=== PATIENT | female | born 1975 | race Caucasian/White ===

== ENCOUNTER 2017-08-26 10:51 | Emergency (ER) | payer BC ==
[~2017-08-26] VITALS: Ht 175.3 cm; Wt 125.0 kg
[~2017-08-26 10:51] MED LIST: FLECAINIDE; JANUMET 1000 MG1 TA1 PO; LANTUS100 U/ML SC; TOPROL XL 25MG25 MG; VICTOZA6 MG/ML SC
[2017-08-26] MEDS ORDERED: METOPROLOL SUCC50 M1 PO (11:01)
[2017-08-26] MEDS ORDERED: DULOXETINE60 MG PO (11:01)
[2017-08-26] MEDS ORDERED: METOCLOPRAMIDE H5 M1 PO (11:01)
[2017-08-26] MEDS ORDERED: FLECAINIDE ACE100 MG PO (11:01)
[2017-08-26] MEDS ORDERED: FUROSEMIDE20 MG PO (11:02)
[2017-08-26] MEDS ORDERED: INVOKANA300 MG PO (11:02)
[2017-08-26] MEDS ORDERED: TRESIBA FL200 UNIT/1 SQ (11:02)
[2017-08-26 11:35] LABS: EOS # 0.2 (0.04-0.40); HEMATOCRIT 42.7 % (37.0-47.0); HEMOGLOBIN 14.1 g/dL (12.5-16.0); LYMPH# 2.1 (1.50-4.00); MEAN CELL VOLUME 91 fl (78-100); MEAN CORPUSCULAR HEMOGLOBIN 30 pg (27-31); MEAN CORPUSCULAR HGB CONC 33 g/dL (33-37); MEAN PLATELET VOLUME 10.4 fl (7.4-10.4); MONO # 0.4 (0.20-0.80); NEU # 4.7 (1.40-6.50); PLATELET COUNT 149 K/mm3 (130-400); RED CELL DISTRIBUTION WIDTH 14.3 % (11.5-14.5); WHITE BLOOD COUNT 7.6 K/mm3 (4.8-10.8)
[2017-08-26 11:48] LABS: ALBUMIN 3.7 g/dL (3.5-5.0); CALCIUM 8.6 mg/dL (8.4-10.2); POTASSIUM 4.7 mmol/L (3.6-5.0); TOTAL BILIRUBIN 0.7 mg/dL (0.2-1.3); TOTAL PROTEIN 7.5 g/dL (6.3-8.2)
[2017-08-26 12:24] LABS: URINE APPEARANCE CLEAR; URINE BILIRUBIN NEGATIVE (NEGATIVE); URINE BLOOD 50 ery/uL (NEGATIVE); URINE COLOR YELLOW; URINE KETONE NEGATIVE (NEGATIVE); URINE LEUKOCYTE ESTERASE NEGATIVE (NEGATIVE); URINE NITRATE NEGATIVE (NEGATIVE); URINE PROTEIN(semi-quant) NEGATIVE (NEGATIVE); URINE UROBILINOGEN NORMAL (NORMAL); URINE WBC 0-1 /hpf (0-3)
[2017-08-26 14:23] VITALS: BP 131/66
== END 2017-08-26 14:19 | disposition home or self-care (01) ==
LOC: ED 10:51
PROVIDERS: Family Medicine
DX: R10.31 Right lower quadrant pain (principal); R10.11 Right upper quadrant pain; E10.9 Type 1 diabetes mellitus without complications; I48.91 Unspecified atrial fibrillation; K76.0 Fatty (change of) liver, not elsewhere classified; Z90.49 Acquired absence of other specified parts of digestive tract; Z79.4 Long term (current) use of insulin
CPT/HCPCS: J1885

== ENCOUNTER → 2024-02-25 | Outpatient (CLI) | payer OTHER ==
[~2024-02-25] MED LIST changes: +DULOXETINE60 MG PO; +FLECAINIDE ACE100 MG PO; +FUROSEMIDE20 MG PO; +INVOKANA300 MG PO; +MACROBID 100 M100 MG PO; +METOCLOPRAMIDE H5 M1 PO; +METOPROLOL SUCC50 M1 PO; +TRESIBA FL200 UNIT/1 SQ
== END ==
LOC: RAD 11:55
DX: L03.031 Cellulitis of right toe (principal); M86.8X7 Other osteomyelitis, ankle and foot

== ENCOUNTER → 2024-07-11 | Outpatient (CLI) | payer OTHER | LOC: LAB 11:42 | DX: E87.5 Hyperkalemia (principal); I10 Essential (primary) hypertension ==

== ENCOUNTER → 2024-08-28 | Outpatient (CLI) | payer OTHER | LOC: LAB 11:56 | DX: N39.0 Urinary tract infection, site not specified (principal) ==